=== PATIENT | female | born 1955 | race Caucasian/White ===

== ENCOUNTER → 2020-08-15 | Outpatient (CLI) | payer MEDICARE | LOC: KOH-I 12:39 | DX: Z12.2 Encounter for screening for malignant neoplasm of respiratory organs (principal); F17.210 Nicotine dependence, cigarettes, uncomplicated | CPT/HCPCS: 71271 ==

== ENCOUNTER → 2021-10-10 | Day surgery (SDC) | payer MEDICARE, OTHER ==
[~2021-10-10] MED LIST: ADVAIR 100-501 EACH INH; AMITRIPTYLINE H50 MG PO; ATORVASTATIN CA80 MG PO; BACLOFEN10 MG PO; GABAPENTIN300 MG PO; MOBIC7.5 MG PO; OMEPRAZOLE20 M1 PO; PROAIR HFA8.5 GM INH; VITAMIN D21250 MCG PO
== END | disposition home or self-care (01) ==
LOC: OR 06:28
PROVIDERS: Internal Medicine Gastroenterology
PROC: 0DBM8ZZ Excision of Descending Colon, Via Natural or Artificial Opening Endoscopic (ICD-10-PCS; 2021-10-10)
PROC: 0DB78ZX Excision of Stomach, Pylorus, Via Natural or Artificial Opening Endoscopic, Diagnostic (ICD-10-PCS; 2021-10-10)
PROC: 0DBK8ZZ Excision of Ascending Colon, Via Natural or Artificial Opening Endoscopic (ICD-10-PCS; principal; 2021-10-10 08:45)
PROC: 0DBL8ZZ Excision of Transverse Colon, Via Natural or Artificial Opening Endoscopic (ICD-10-PCS; 2021-10-10 08:45)
DX: Z12.11 Encounter for screening for malignant neoplasm of colon (principal); Z20.822 Contact with and (suspected) exposure to COVID-19; K21.9 Gastro-esophageal reflux disease without esophagitis; K29.70 Gastritis, unspecified, without bleeding; K57.30 Diverticulosis of large intestine without perforation or abscess without bleeding; K64.1 Second degree hemorrhoids; K63.5 Polyp of colon
CPT/HCPCS: J2704; J3010; J7040

== ENCOUNTER → 2021-10-15 | Outpatient (CLI) | payer MEDICARE | LOC: KOH-I 09-20 15:00 | DX: F17.210 Nicotine dependence, cigarettes, uncomplicated (principal); J43.9 Emphysema, unspecified; J84.10 Pulmonary fibrosis, unspecified; R91.8 Other nonspecific abnormal finding of lung field | CPT/HCPCS: 71271 ==